=== PATIENT | female | born 1980 | race Caucasian/White ===

== ENCOUNTER 2017-05-06 05:54 | Day surgery (SDC) | payer OTHER | END 2017-05-06 10:20 | disposition home or self-care (01) | LOC: AMB-ENDOS 05:54 | DX: D13.1 Benign neoplasm of stomach (principal); K29.60 Other gastritis without bleeding; K31.7 Polyp of stomach and duodenum ==

== ENCOUNTER 2017-05-06 10:48 | Outpatient (CLI) | payer OTHER | END 2017-05-06 11:00 | disposition home or self-care (01) | LOC: NUCLEAR 10:48 | DX: R00.0 Tachycardia, unspecified (principal); E66.01 Morbid (severe) obesity due to excess calories ==